=== PATIENT | male | born 1995 | race Caucasian/White ===

== ENCOUNTER 2017-01-05 16:58 | Emergency (ER) | payer OTHER ==
[2017-01-05] MEDS ORDERED: NORMAL SALINE 1000 ML 1,000 ML IV ONE (17:19)
--- NOTE | 2017-01-05 17:48 | ER Document Report ---
ED General - General Chief Complaint: Probable Seizure Stated Complaint: POSSIBLE SEIZURE Time Seen by Provider: 01/05/17 16:59 Notes: The patient is a 21-year-old male, past medical history GERD, [place] and started having generalized body shaking. His and friend were at bedside said that he had 5 episodes of this. He has never had a seizure in the past. The patient is hyperventilating on arrival to the emergency room but is alert. Denies headache, numbness, tingling , stiffness, fevers, nausea or vomiting. TRAVEL OUTSIDE OF THE [place] IN LAST 30 DAYS: No - Related Data Allergies/Adverse Reactions: No Known Allergies Allergy (Verified 01/05/17 17:12) Past Medical History - General Information source: Patient, Friend - Social History Smoking Status: Current Every Day Smoker Chew tobacco use (# tins/day): No Frequency of alcohol use: Occasional Drug Abuse: None Family History: Reviewed & Not Pertinent Patient has suicidal ideation: No Patient has homicidal ideation: No Renal/ Medical History: Denies: Hx Peritoneal Dialysis Surgical Hx: Negative - Immunizations Hx Diphtheria, Pertussis, Tetanus Vaccination: No Review of Systems - Review of Systems Notes: REVIEW OF SYSTEMS: CONSTITUTIONAL: -fevers, -chills EENT: -eye pain, -difficulty swallowing, -nasal congestion CARDIOVASCULAR:-chest pain, -syncope. RESPIRATORY: -cough, -SOB GASTROINTESTINAL: -abdominal pain, - nausea, -vomiting, -diarrhea GENITOURINARY: -dysuria, -hematuria MUSCULOSKELETAL: -back pain, -neck pain SKIN: -rash or skin lesions. HEMATOLOGIC: -easy bruising or bleeding. LYMPHATIC: -swollen, enlarged glands. NEUROLOGICAL: -altered mental status or loss of consciousness, -headache, + shaking PSYCHIATRIC: -anxiety, -depression. ALL OTHER SYSTEMS REVIEWED AND NEGATIVE. Physical Exam - Vital signs Vitals: Resp BP Pulse Ox 36 H 136/122 H 98 01/05/17 17:02 01/05/17 17:02 01/05/17 17:02 - Notes Notes: PHYSICAL EXAMINATION: GENERAL: Hyperventilating. HEAD: Atraumatic, normocephalic. EYES: Pupils equal round and reactive to light, extraocular movements intact, sclera anicteric, conjunctiva are normal. ENT: nares patent, oropharynx clear without exudates. Moist mucous membranes. NECK: Normal range of motion, supple without lymphadenopathy LUNGS: Breath sounds clear to auscultation bilaterally and equal. No wheezes rales or rhonchi. HEART: Tachycardia, regular rhythm ABDOMEN: Soft, nontender, normoactive bowel sounds. No guarding, no rebound. No masses appreciated. EXTREMITIES: Normal range of motion, no pitting or edema. No cyanosis. NEUROLOGICAL: Cranial nerves grossly intact. Normal speech, normal gait. Normal sensory, motor, and reflex exams. PSYCH: Normal mood, normal affect. SKIN: Warm, Dry, normal turgor, no rashes or lesions noted. Course - Re-evaluation Re-evalutation: Do not suspect seizure activity because he was alert and awake while shaking of his arms and legs. With the hyperventilation, suspect spasming. Labs unremarkable and patient's tachycardia resolved after fluids. He is completely asymptomatic and his labs are unremarkable, other than an ETOH level of 150. His is sober, so we will send home the patient with her. Given return precautions and he understands. - Vital Signs Vital signs: Temp Pulse Resp BP Pulse Ox 98.1 F 14 125/61 98 01/05/17 18:25 01/05/17 18:25 01/05/17 18:25 01/05/17 17:03 - Laboratory Result Diagrams: 01/05/17 17:03 Laboratory results interpreted by me: 01/05/17 17:03 Glucose 112 H Discharge - Discharge Clinical Impression: [place] spasm Alcohol intoxication Qualifiers: Complication of substance-induced condition: uncomplicated Qualified Code(s): F10.920 - Alcohol use, unspecified with intoxication, uncomplicated Condition: Stable Disposition: HOME, SELF-CARE Additional Instructions: ACUTE ALCOHOL INTOXICATION and ALCOHOL ABUSE: Your evaluation revealed very high levels of alcohol. You can from drinking a large amount of alcohol rapidly! Further, there's the risk of falls , traffic accidents, and fights. A high portion (about 50 percent) of the serious injuries seen in hospital emergency rooms are caused by alcohol. Alcohol overdosage is usually due to an underlying emotional or psychiatric problem. You may benefit from counselling. If "binge" drinking is an ongoing problem for you, or if you drink ANY AMOUNT of alcohol EVERY day, you most likely have a tendency to alcoholism. You should avoid alcohol totally. We can refer you for treatment. Persons with alcohol problems are often also prone to other addictions -- you should discuss any use of medications or drugs with the doctor. You should be watched at home for the next several hours by someone who has not been drinking. Get extra fluids for the next 24 hours. Call the doctor if there is repeated vomiting, increasing headache, decreasing level of alertness, or any other worsening. FOR THE OBSERVER: Observe the patient for the next 24 hours and call or go to the hospital if any of the following are noted: prolonged or repeated vomiting, difficulty in arousing, convulsions (seizures or fits), fever, persistent cough, breathing that is too slow or too rapid, or confused or bizarre behavior. If a counselling visit has been arranged, make sure the patient attends. Call the physician or poison control if you have questions. FOLLOW-UP CARE: If you have been referred to a physician for follow-up care, call the physician s office for an appointment as you were instructed or within the next two days. If you experience worsening or a significant change in your symptoms, notify the physician immediately or return to the Emergency Department at any time for re-evaluation.
[2017-01-05 18:05] LABS: ALCOHOL 150 mg/dL (NONE DETECTED); ANION GAP 19 (5-19); BLOOD UREA NITROGEN 12 mg/dL (7-20); CALCIUM 9.5 mg/dL (8.4-10.2); CARBON DIOXIDE 22 mmol/L (22-30); CHLORIDE 103 mmol/L (98-107); CREATININE RESULT 1.15 mg/dL (0.52-1.25); GLUCOSE 112 mg/dL (75-110)
[2017-01-05 18:31] VITALS: BP 125/61
== END 2017-01-05 18:28 | disposition home or self-care (01) ==
LOC: ER 16:58
DX: R29.0 Tetany (principal); F10.920 Alcohol use, unspecified with intoxication, uncomplicated; R06.4 Hyperventilation; R00.0 Tachycardia, unspecified; F17.200 Nicotine dependence, unspecified, uncomplicated
CPT/HCPCS: 36415; 80048; 80307; 82962; 99284